=== PATIENT | male | born 1955 | race Caucasian/White ===

== ENCOUNTER 2021-08-21 15:11 | Inpatient (IN) | payer MEDICARE ==
[~2021-08-21] VITALS: Ht 170.2 cm; Wt 56.7 kg
[2021-08-21] MEDS ORDERED: ASPIRIN 325 MG TABLET PO ONE (15:30)
[2021-08-21] MEDS ORDERED: ASPIRIN 325 MG TABLET ONE (15:39)
[2021-08-21 15:49] LABS: HEMATOCRIT 36.8 % (36.7-47.1); MEAN CORPUSCULAR HEMOGLOBIN 31.4 uug (23.8-33.4); MEAN CORPUSCULAR VOLUME 91.8 fL (73.0-96.2); PLATELET COUNT (AUTO) 186 K/uL (152-348)
[2021-08-21 15:54] LABS: CREATININE 0.9 mg/dL (0.6-1.3); POTASSIUM 3.9 mmol/L (3.5-5.1)
[2021-08-21 16:09] LABS: BILIRUBIN,DIRECT 0.1 mg/dL (0.0-0.2); BILIRUBIN,TOTAL 0.4 mg/dL (0.2-1.0); TOTAL PROTEIN, SERUM 6.1 g/dL (6.4-8.2)
--- NOTE | 2021-08-21 16:11 | NUR ---
RN TO CALL RADIOLOGY WHEN CONTRAST CONSENT IS SIGNED
[2021-08-21] MEDS ORDERED: IV NORMAL SALINE 250 ML IV ONE (16:54)
[2021-08-21] MEDS ORDERED: IOHEXOL 350 100 ML INFUS..BTL ONE (16:54)
[2021-08-21] MEDS ORDERED: SWABABLE VALVE TRANSFER SET EA MC ONE (16:54)
--- NOTE | 2021-08-21 18:30 | NUR ---
Pt resting with NAD noted, repeat trop drawn.
[2021-08-21] MEDS ORDERED: LORAZEPAM 0.5 MG TABLET PO ONE (20:30)
--- NOTE | 2021-08-21 20:30 | NUR ---
PT AMBULATED TO RESTROOM, STEADY GAIT.
[2021-08-21] MEDS ORDERED: LORAZEPAM 1 MG TABLET ONE (21:05)
[2021-08-21] MEDS ORDERED: ENOXAPARIN SODIUM 60 MG/0.6 ML DISP.SYRIN SQ ONE ×2 (22:00→22:01)
--- NOTE | 2021-08-21 22:02 | NUR ---
GAVE REPORT TO MARTIN BRIGHT.
[2021-08-21] MEDS ORDERED: MORPHINE SULFATE 2 MG/1 ML DISP.SYRIN IV PRN (22:15)
[2021-08-21] MEDS ORDERED: ACETAMINOPHEN 325 MG TABLET PO PRN (22:15)
[2021-08-21] MEDS ORDERED: Z GUARD REMEDY PASTE 57 GM TUBE TOP PRN (22:15)
[2021-08-21] MEDS ORDERED: ONDANSETRON 4 MG/2 ML VIAL IV PRN (22:15)
[2021-08-21] MEDS ORDERED: MAGNESIUM HYDROXIDE 30 ML LIQUID UDC PO PRN (22:15)
--- NOTE | 2021-08-21 22:58 | NUR ---
Pt. admitted to [facility] room 301A , under care of Dr. Washington Dx: acute coronoary syndrome Belongs List completed
--- NOTE | 2021-08-21 23:00 | NUR ---
received report and patient from mika boateng , patient is awake , oriented , able to follow command on room air , leac 20 ga intactintact , continent , denies pain or distress at this time , no seizure noted ,
[2021-08-21 23:26] VITALS: BP 135/55
[2021-08-21] MEDS: NITROGLYCERIN OINT 1 GM PACKET TP SCH (23:53)
--- NOTE | 2021-08-22 01:18 | NUR ---
emergency contact , daughter tessa ,
[2021-08-22 04:40] VITALS: BP 138/65
[2021-08-22 04:48] LABS: CREATININE 0.7 mg/dL (0.6-1.3); PHOSPHOROUS 3.4 mg/dL (2.5-4.9); POTASSIUM 3.8 mmol/L (3.5-5.1)
[2021-08-22 04:49] LABS: HEMATOCRIT 37.7 % (36.7-47.1); MEAN CORPUSCULAR HEMOGLOBIN 31.3 uug (23.8-33.4); MEAN CORPUSCULAR VOLUME 92.7 fL (73.0-96.2); PLATELET COUNT (AUTO) 188 K/uL (152-348)
[2021-08-22] MEDS: NITROGLYCERIN OINT 1 GM PACKET TP SCH ×3 (05:48→21:31)
--- NOTE | 2021-08-22 07:00 | NUR ---
awake , oriented , able to follow command , on room air , denies chest pain at this time
[2021-08-22] MEDS: ASPIRIN 325 MG TABLET PO SCH (08:09)
--- NOTE | 2021-08-22 10:22 | NUR ---
WOUND CARE CONSULT: REVIEWED CHART, NURSING DOCUMENTATION AND PHOTO WHICH INDICATES SOME DISCOLORATION TO LEFT ARM, PRESENT ON ADMISSION. DEFER TO MD FOR DISCOLORATION. WILL SEE PRN. Addendum: 08/22/21 at 1023 by JOSE FRANCISCO MONTEMAYOR RN PT IS AMBULATORY TO BATHROOM PER NURSING STAFF.
[2021-08-22] MEDS: LORAZEPAM 0.5 MG TABLET PO PRN ×2 (11:25→20:38)
[2021-08-22 12:00] VITALS: BP 138/64
[2021-08-22 16:00] VITALS: BP 124/58
[2021-08-22] MEDS: ENSURE ENLIVE (VAN) 240 ML LIQUID PO SCH (17:14)
--- NOTE | 2021-08-22 17:43 | NUR ---
NO ACUTE CHANGE FROM BASELINE ASSESSMENT. SEEN BY DR RECINOS FOR CARDIAC FOLLOW-UP SAID WILL CALL [facility] LIM AND PLAN DC PATIENT FAR CARDIAC STANDPOINT. SR ON MONITOR
--- NOTE | 2021-08-22 19:35 | NUR ---
Received shift report, patient in bed resting and states feeling anxious. Ativan 0.5mg given. Patient is aware of discharge plans and chose to be discharged in am. Will continue to monitor.
--- NOTE | 2021-08-22 20:00 | NUR ---
Patient is tolerated Ativan 0.5mg well. Patient is sleeping well. No signs of anxiousness. Will continue to monitor.
--- NOTE | 2021-08-22 20:00 | NUR ---
Dr. Farias aware of patient being discharged in the am. Will endorse
[2021-08-22 20:23] VITALS: BP 130/47
[2021-08-22] MEDS ORDERED: ATOR10TA PO (20:34)
[2021-08-22] MEDS ORDERED: ASPI81TA31 PO (20:34)
[2021-08-22] MEDS ORDERED: ATORVASTATIN 10 MG TABLET PO SCH (21:00)
[2021-08-23 00:28] VITALS: BP 135/55
[2021-08-23 04:57] VITALS: BP 130/60
[2021-08-23 05:40] VITALS: BP 130/60
[2021-08-23] MEDS: NITROGLYCERIN OINT 1 GM PACKET TP SCH (05:40)
--- NOTE | 2021-08-23 06:11 | NUR ---
Patient in bed resting well. Patient compliant with medications and care. No signs of acute distress. Call lights within reach, bed in lowest position and bed alarm on.
[2021-08-23] MEDS: ASPIRIN 325 MG TABLET PO SCH (09:03)
[2021-08-23] MEDS: ENSURE ENLIVE (VAN) 240 ML LIQUID PO SCH (09:03)
--- NOTE | 2021-08-23 09:20 | NUR ---
received in bed awake stated he was not able to sleep well last night but has those episodes sometimes. is not worried about anything. denies chest pain or sob/difficulty breathing. on room air o2 sat 95-96%. no complaints. bed at lowest and locked. siderails up x2. will cont to monitor.
--- NOTE | 2021-08-23 11:51 | NUR ---
discharged to home. discharge instructions relayed, advised to stop smoking and dr. marcelo's card provided for f/up. he verbalized understanding. denies pain or sob. left ambulatory picked up by friend Nazario. Addendum: 08/23/21 at 1156 by MEAGAN LEONARD RN discharged stable.
--- NOTE | 2021-08-23 12:30 | NUR ---
pt left his written prescription. called preferred pharmacy [facility] spoke with harrison, confirmed they have the efaxed prescription also and preparing the meds right now. pt just needs to bring insurance info. called pt but no answer left voicemail.
--- NOTE | 2021-08-23 18:32 | NUR ---
called patient again 2x about prescription but no answer. dtr did not answer either. already left voicemail.
== END 2021-08-23 11:50 | disposition home or self-care (01) | DRG 206 ==
LOC: ER 15:11 → TELE-TD3 22:54 → TELE3 08-22 00:22 → MEDSURG3 08-23 10:53
PROVIDERS: ADMIT Internal Medicine; ATTEND Nurse Practitioner Acute Care
DX: M94.0 Chondrocostal junction syndrome [Tietze] (principal); G40.909 Epilepsy, unspecified, not intractable, without status epilepticus; E78.5 Hyperlipidemia, unspecified; I71.4 Abdominal aortic aneurysm, without rupture; J44.9 Chronic obstructive pulmonary disease, unspecified; F41.9 Anxiety disorder, unspecified; Z20.822 Contact with and (suspected) exposure to COVID-19; F17.210 Nicotine dependence, cigarettes, uncomplicated
CPT/HCPCS: 36415; 70030-TC; 71045; 71275; 83735; 84100; 85025; 93005; 93307; A4663; G0378; J1650; J7050; Q9967; U0003

== ENCOUNTER 2024-01-22 15:05 | Emergency (ER) | payer MEDICARE ==
[~2024-01-22] VITALS: Ht 175.3 cm; Wt 70.3 kg
[~2024-01-22 15:05] MED LIST: ASPI81TA31 PO; ATOR10TA PO
[2024-01-22 16:33] LABS: BASOPHILS # (AUTO) 0.1 K/UL (0.0-0.2); BASOPHILS % (AUTO) 0.5 % (0.0-2.0); EOSINOPHILS # (AUTO) 0.2 K/uL (0.0-0.7); HEMATOCRIT 38.8 % (36.7-47.1); LYMPHOCYTES # (AUTO) 1.2 K/uL (0.8-4.8); LYMPHOCYTES % (AUTO) 10.8 % (20.5-51.5); MEAN CORPUSCULAR HEMOGLOBIN 30.3 uug (23.8-33.4); MEAN CORPUSCULAR HGB CONC 34 g/dL (32.5-36.3); MEAN CORPUSCULAR VOLUME 90.6 fL (73.0-96.2); MONOCYTES # (AUTO) 0.7 K/uL (0.1-1.30); MONOCYTES % (AUTO) 6.9 % (0.0-11.0); NEUTROPHILS # (AUTO) 8.6 K/uL (1.8-8.9); NEUTROPHILS % (AUTO) 79.8 % (38.5-71.5); PLATELET COUNT (AUTO) 255 K/uL (152-348); RED BLOOD CELL COUNT(AUTO) 4.28 MIL/uL (4.06-5.63); RED CELL DISTRIBUTION WIDTH 13.6 % (12.1-16.2); WHITE BLOOD COUNT (AUTO) 10.8 K/uL (3.6-10.2)
[2024-01-22 17:12] LABS: CALCIUM 8.8 mg/dL (8.5-10.1); CARBON DIOXIDE 26 mmol/L (21-32); CHLORIDE 104 mmol/L (98-107); CREATININE 0.7 mg/dL (0.6-1.3); GLUCOSE 91 mg/dL (74-106); POTASSIUM 4.1 mmol/L (3.5-5.1); SODIUM SERUM 141 mmol/L (136-145); UREA NITROGEN, BLOOD 6 mg/dL (7-18)
[2024-01-22 17:15] LABS: DIFFERENTIAL COMMENT 1
[2024-01-22 17:25] LABS: ALANINE AMINOTRANSFERASE 19 U/L (16-63); ALBUMIN 3.3 g/dL (3.4-5.0); ALKALINE PHOSPHATASE 67 U/L (50-136); ASPARTATE AMINOTRANSFERASE 14 U/L (15-37); BILIRUBIN,DIRECT 0.1 mg/dL (0.0-0.2); BILIRUBIN,TOTAL 0.5 mg/dL (0.2-1.0); NT-PRO BNP 39 pg/mL (0-125); TOTAL PROTEIN, SERUM 6.2 g/dL (6.4-8.2)
[2024-01-22 18:15] VITALS: BP 110/71; O2SAT 97
== END 2024-01-22 18:15 | disposition home or self-care (01) ==
LOC: ER 15:07
DX: R06.00 Dyspnea, unspecified (principal); G40.909 Epilepsy, unspecified, not intractable, without status epilepticus; E78.5 Hyperlipidemia, unspecified; F41.9 Anxiety disorder, unspecified; Z79.82 Long term (current) use of aspirin; Z79.899 Other long term (current) drug therapy
CPT/HCPCS: 36415; 71045; 84484; 85025; 85730; 93005; A4606; A4663